=== PATIENT | female | born 1950 | race Caucasian/White ===

== ENCOUNTER 2020-10-17 17:23 | Outpatient (REF) | payer MEDICARE, SELFPAY ==
--- NOTE | 2020-10-17 | MM_ITS ---
EXAMINATION: MM SCREENING DIGITAL BREAST TOMOSYNTHESIS, BILATERAL CLINICAL INFORMATION: Screening. Asymptomatic. Family history postmenopausal breast cancer in aunt. No personal history breast surgery or biopsy. Prior outside exams from [place], currently unavailable. The lifetime risk of breast cancer based on the Tyrer-Cuzick Model is 8%. COMPARISON: None. TECHNIQUE: Digital breast tomosynthesis is performed in both the craniocaudal and mediolateral oblique views along with computer-aided detection (CAD). Synthesized 2D images are generated from the tomosynthesis. FINDINGS: The breasts are heterogeneously dense, which may obscure small masses (ACR BI-RADS breast composition Category c). Breast tissue composition borders on average fibroglandular. There is no significant mass or architectural abnormality. No abnormal calcifications. The axilla and skin contours are unremarkable. Radiology department staff will attempt to retrieve prior [id number] mammography to allow for comparison in an addendum report. MM/MM tomosynthesis screening BI IMPRESSION: No mammographic evidence of malignancy. ASSESSMENT: BI-RADS 1: Negative RECOMMENDATION: Routine annual mammography screening. This patient's information was entered into a reminder system with a target due date for their next mammogram.
== END 2020-10-17 17:24 | disposition home or self-care (01) ==
LOC: HO.MAMMO 17:23
PROVIDERS: PCP Family Medicine; Visit Provider Advanced Practice Midwife
DX: Z12.31 Encounter for screening mammogram for malignant neoplasm of breast (principal)
CPT/HCPCS: 77063; 77067

== ENCOUNTER → 2021-01-18 08:27 | Outpatient (BNVA) | payer MEDICARE, SELFPAY | PROVIDERS: PCP Family Medicine; Visit Provider Advanced Practice Midwife | DX: Z01.419 Encounter for gynecological examination (general) (routine) without abnormal findings (principal); N95.2 Postmenopausal atrophic vaginitis | CPT/HCPCS: 99212 ==

== ENCOUNTER 2021-10-25 13:02 | Outpatient (REF) | payer MEDICARE, SELFPAY ==
--- NOTE | ~2021-10-25 | MM_ITS ---
EXAMINATION: MM SCREENING DIGITAL BREAST TOMOSYNTHESIS, BILATERAL CLINICAL INFORMATION: Screening. Asymptomatic. The lifetime risk of breast cancer based on the Tyrer-Cuzick Model is 8%. COMPARISON: Mammography: 10/17/2020; outside mammography 05/16/2018, 05/07/2017 ([place], [place]). TECHNIQUE: Digital breast tomosynthesis is performed in both the craniocaudal and mediolateral oblique views along with computer-aided detection (CAD). Synthesized 2D images are generated from the tomosynthesis. FINDINGS: The breasts are heterogeneously dense, which may obscure small masses (ACR BI-RADS breast composition Category c). There are no significant masses, abnormal calcifications, or other abnormalities. Parenchymal pattern is similar to prior studies. No developing density. The axilla and skin contours are unremarkable. MM/MM tomosynthesis screening BI IMPRESSION: No mammographic evidence of malignancy. ASSESSMENT: BI-RADS 1: Negative RECOMMENDATION: Routine annual mammography screening. This patient's information was entered into a reminder system with a target due date for their next mammogram.
== END 2021-10-25 13:03 | disposition home or self-care (01) ==
LOC: HO.MAMMO 13:02
PROVIDERS: PCP Family Medicine; Visit Provider Advanced Practice Midwife
DX: Z12.31 Encounter for screening mammogram for malignant neoplasm of breast (principal)
CPT/HCPCS: 77063; 77067

== ENCOUNTER 2022-02-15 08:33 | Outpatient (REF) | payer MEDICARE, SELFPAY ==
[2022-02-16 10:57] LABS: BV Int Neg Control Negative (Negative); BV Int Pos Control Positive (Positive)
== END 2022-02-15 08:34 | disposition home or self-care (01) ==
LOC: HO.LAB 08:33
PROVIDERS: PCP Family Medicine; Visit Provider Advanced Practice Midwife
DX: Z01.419 Encounter for gynecological examination (general) (routine) without abnormal findings (principal); N89.8 Other specified noninflammatory disorders of vagina
CPT/HCPCS: 87480; 87510; 87660; 99212

== ENCOUNTER 2022-10-26 13:23 | Outpatient (REF) | payer MEDICARE, SELFPAY ==
--- NOTE | ~2022-10-26 | MM_ITS ---
EXAMINATION: MM SCREENING DIGITAL BREAST TOMOSYNTHESIS, BILATERAL CLINICAL INFORMATION: Screening. Asymptomatic. The lifetime risk of breast cancer based on the Tyrer-Cuzick Model is 7%. COMPARISON: Mammography: 10/25/2021, 10/17/2020, 05/16/2018 TECHNIQUE: Digital breast tomosynthesis is performed in both the craniocaudal and mediolateral oblique views along with computer-aided detection (CAD). Synthesized 2D images are generated from the tomosynthesis. FINDINGS: The breasts are heterogeneously dense, which may obscure small masses (ACR BI-RADS breast composition Category c). There are no significant masses, abnormal calcifications, or other abnormalities. Parenchymal pattern is similar to prior studies. There is no developing density or architectural abnormality. The axilla and skin contours are unremarkable. No significant changes. MM/MM tomosynthesis screening BI IMPRESSION: No mammographic evidence of malignancy. ASSESSMENT: BI-RADS 1: Negative RECOMMENDATION: Routine annual mammography screening. This patient's information was entered into a reminder system with a target due date for their next mammogram.
== END 2022-10-26 13:24 | disposition home or self-care (01) ==
LOC: HO.MAMMO 13:23
PROVIDERS: PCP Family Medicine; Visit Provider Family Medicine
DX: Z12.31 Encounter for screening mammogram for malignant neoplasm of breast (principal)
CPT/HCPCS: 77063; 77067

== ENCOUNTER 2023-03-04 08:41 | Outpatient (REF) | payer MEDICARE, SELFPAY ==
[2023-03-05 09:55] LABS: BV Int Neg Control Negative (Negative); BV Int Pos Control Positive (Positive)
== END 2023-03-04 08:42 | disposition home or self-care (01) ==
LOC: HO.LAB 08:41
PROVIDERS: PCP Family Medicine; Visit Provider Advanced Practice Midwife
DX: Z01.419 Encounter for gynecological examination (general) (routine) without abnormal findings (principal); N95.2 Postmenopausal atrophic vaginitis; R39.15 Urgency of urination; R32 Unspecified urinary incontinence
CPT/HCPCS: 87480; 87510; 87660

== ENCOUNTER 2023-03-28 09:57 | Outpatient (REF) | payer MEDICARE, SELFPAY ==
[2023-03-28 16:42] LABS: Urine Cytology See Pathology rpt
== END 2023-03-28 09:58 | disposition home or self-care (01) ==
LOC: HO.LNP 09:57
PROVIDERS: PCP Family Medicine; Visit Provider Nurse Practitioner Family
DX: R35.0 Frequency of micturition (principal); R31.29 Other microscopic hematuria
CPT/HCPCS: 88112; 99202

== ENCOUNTER 2023-04-12 12:06 | Outpatient (REF) | payer MEDICARE, SELFPAY ==
--- NOTE | ~2023-04-12 | US_ITS ---
EXAMINATION: US RETROPERITONEAL COMPLETE (RENAL) CLINICAL INFORMATION: Frequency of micturition. COMPARISON: None available. TECHNIQUE: Real-time imaging of the kidneys and bladder. FINDINGS: RIGHT KIDNEY: 11.7 x 4.6 x 5.5 cm (SAG x AP x TRV). The kidney is normal in size, contour, and echogenicity. Renal cortical thickness is normal. No calculi or focal parenchymal lesions. No hydronephrosis. LEFT KIDNEY: 10.4 x 4.3 x 5.3 cm (SAG x AP x TRV). The kidney is normal in size, contour, and echogenicity. Renal cortical thickness is normal. No calculi or focal parenchymal lesions. No hydronephrosis. BLADDER: Distended. Bilateral ureteral jets are demonstrated. Prevoid bladder volume is 473.7 mL. Postvoid bladder volume is 22.3 mL. US/US retroperitoneal comp IMPRESSION: Distended urinary bladder with debris consistent with sediment. Correlate with urinalysis. Bladder volume 474 mL. Post void volume 22 mL.
== END 2023-04-12 12:07 | disposition home or self-care (01) ==
LOC: HO.US 12:06
PROVIDERS: PCP Family Medicine; Visit Provider Nurse Practitioner Family
DX: R35.0 Frequency of micturition (principal); R31.29 Other microscopic hematuria
CPT/HCPCS: 76770

== ENCOUNTER 2023-11-15 11:22 | Outpatient (REF) | payer MEDICARE, SELFPAY | END 2023-11-15 11:23 | disposition home or self-care (01) | LOC: HO.MAMMO 11:22 | PROVIDERS: PCP Family Medicine; Visit Provider Advanced Practice Midwife | DX: Z12.31 Encounter for screening mammogram for malignant neoplasm of breast (principal) | CPT/HCPCS: 77063; 77067 ==

== ENCOUNTER → 2023-11-15 11:30 | Outpatient (BNV) | payer MEDICARE, SELFPAY | PROVIDERS: PCP Family Medicine; Visit Provider Radiology Diagnostic Radiology | DX: Z12.31 Encounter for screening mammogram for malignant neoplasm of breast (principal) | CPT/HCPCS: 77063; 77067 ==

== ENCOUNTER 2024-03-11 14:07 | Outpatient (AMB) | payer MEDICARE, SELFPAY ==
[2024-03-11 14:12] VITALS: BP 112/70; BMI 24.4
--- NOTE | 2024-03-11 14:12 | MHC.OFFVIS ---
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 She is doing well with no concerns. Seen by Urology last year did not follow up with provider after her last scan. Was unaware she had hematuria. Had stopped using the Estring, interested in restarting. Has some urinary urgency. She denies any risk factors for hormone use. Attempting to eat a healthy diet with calcium and vitamin D and stays active with exercise. Currently not sexually active. Admits to external dryness. Last mammogram; 2019. Colonoscopy is UTD. Denies any family history of ovarian or colon cancer. Distant relative with breast cancer. [facility] Medical History Glaucoma Cataract Basal cell carcinoma Low thyroid stimulating hormone (TSH) level Surgical History History of hernia surgery Hx of tonsillectomy Family History Paternal Aunt History of breast cancer Social History Alcohol intake: current Alcohol intake frequency: a few times a week Patient Tobacco Use Status: Never used Tobacco Female Reproductive History Menstrual Total pregnancies: 0 Date of Mammogram: 11/15/23 (Birad 1) Review of Systems Const All systems reviewed & are unremarkable except as noted in HPI and below Reports as per HPI Eyes Reports no additional complaints ENT Reports no additional complaints Card Reports no additional complaints Resp Reports no additional complaints GI Reports as per HPI and Reports no additional complaints Reports as per HPI Musc Reports no additional complaints Skin/Breast Reports as per HPI Neuro Reports no additional complaints Psych Reports no additional complaints Endo Reports no additional complaints Martínez/Lymph Reports no additional complaints Aller/Immun Reports no additional complaints Physical Exam Vital Signs: Last Vital Signs BP 112/70 03/11/24 14:12 BMI result Body Mass Index 24.4 Const General: cooperative, healthy appearing, no acute distress, well developed and alert Orientation/consciousness: patient oriented x3 HEENT Head: Yes normal to inspection Eyes General: appearance normal, both eyes and all related structures Neck Neck: Yes normal visual inspection Thyroid: Thyroid normal Chest Chest palpation & inspection: normal inspection of the chest and other (no puckering, dimpling, peau de orange, retraction, discharge, masses) Breast/axilla inspection: normal inspection of the breasts Breast/axilla palpation: normal palpation of the breasts Resp Effort & Inspection: normal respiratory effort GI Inspection: Yes normal to inspection Palpation (GI): Soft to palpation Rectal Exam - Female: deferred Other: External atrophic changes noted, urethral caruncle General: Yes bladder normal to palpation External Female Exam: normal external appearance and normal appearance of the urethra Speculum Exam - Vagina: normal palpation and vagina atrophic Speculum Exam - Cervix: normal appearance of the cervix and normal palpation Bimanual exam- vagina & uterus: normal bimanual exam, normal palpation, uterine size normal, bladder normal to palpation, normal palpation and non-tender Bimanual Exam- Adnexa, other: no masses Skin General skin exam: no rashes or lesions noted Rashes: no rashes Neuro General: patient oriented x3 Cognition (Neuro): normal cognition Extrem General: Yes normal to inspection Psych Attitude: cooperative Thought process: Normal thought process present Assessment & Plan Assessment & Plan (1) Encounter for well woman exam with routine gynecological exam: Code(s): Z01.419 - Encounter for gynecological examination (general) (routine) without abnormal findings (2) Urethral caruncle: Code(s): 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 Breast awareness, periodic self breast exams and yearly mammogram. Maintain a healthy lifestyle, well balanced diet including Calcium 1,200 mg and Vitamin D 800 IU daily, and routine exercise. Calcium handout given. Advised to follow up with Urology. Contact the office with any postmenopausal bleeding. Restarting estrogen will choose to use the topical for application due to the urethral caruncle. Reviewed med warning advised not to use if any breast lumps or diagnosis of breast cancer, call the office if any medical changes is uncertain with the use. Instructed on application frequency. Informed of Good Rx. Patient verbalizes understanding and agrees to the plan of care. She was given opportunity to ask questions and all questions were answered to the best of my ability. Return to the office 1 year. This note is constructed using voice recognition software. While every effort has been made to ensure accuracy, landscape architecture teacher errors may have been included. RTO in 1 year for annual sql programmer analyst exam. Medications: New estradiol 0.01%(0.1mg/gram) (Estrace) use nightly for two weeks, then twice a week 1 g vaginal 2XW 42.5 grams 2RF Coding Level of Care Code Est Pt Prev Care >65y(23398) Diagnoses Encounter for well woman exam with routine gynecological exam Z01.419 Urethral caruncle N36.2
== END 2024-03-11 15:10 | disposition home or self-care (01) ==
PROVIDERS: PCP Family Medicine; Visit Provider Advanced Practice Midwife
DX: Z01.419 Encounter for gynecological examination (general) (routine) without abnormal findings (principal); N36.2 Urethral caruncle
CPT/HCPCS: 99397

== ENCOUNTER → 2024-03-11 14:07 | Outpatient (BNVA) | payer MEDICARE, SELFPAY | PROVIDERS: PCP Family Medicine; Visit Provider Advanced Practice Midwife ==

== ENCOUNTER 2024-12-04 13:51 | Outpatient (REF) | payer MEDICARE, SELFPAY | END 2024-12-04 13:52 | disposition home or self-care (01) | LOC: HO.MAMMO 13:51 | PROVIDERS: PCP Family Medicine; Visit Provider Family Medicine | DX: Z12.31 Encounter for screening mammogram for malignant neoplasm of breast (principal) | CPT/HCPCS: 77063; 77067 ==

== ENCOUNTER → 2024-12-04 14:00 | Outpatient (BNV) | payer MEDICARE, SELFPAY | PROVIDERS: PCP Family Medicine; Visit Provider Internal Medicine | DX: Z12.31 Encounter for screening mammogram for malignant neoplasm of breast (principal) | CPT/HCPCS: 77063; 77067 ==

== ENCOUNTER 2025-03-16 09:03 | Outpatient (AMB) | payer MEDICARE, SELFPAY ==
--- NOTE | 2025-03-16 09:07 | MHC.OFFVIS ---
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 She is doing well with tie tape machine operator concerns: had recent antibiotic use, reports asymptomatic discharge. Currently not sexually active. Attempting to eat a healthy diet with calcium and vitamin D and stays active with exercise. Last mammogram; 2024. Colonoscopy is UTD. Denies any family history of ovarian or colon cancer. FH breast cancer. 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 Female Reproductive History Menstrual Total pregnancies: 0 Date of Mammogram: 12/04/24 (Birad 1) Review of Systems Const All systems reviewed & are unremarkable except as noted in HPI and below Reports as per HPI Eyes Reports no additional complaints ENT Reports no additional complaints Card Reports no additional complaints Resp Reports no additional complaints GI Reports as per HPI and Reports no additional complaints Reports as per HPI Musc Reports no additional complaints Skin/Breast Reports as per HPI Neuro Reports no additional complaints Psych Reports no additional complaints Endo Reports no additional complaints Martínez/Lymph Reports no additional complaints Aller/Immun Reports no additional complaints Physical Exam Vital Signs: Last Vital Signs BP 102/62 03/16/25 09:08 BMI result Body Mass Index 25.4 Const General: cooperative, healthy appearing, no acute distress, well developed and alert Orientation/consciousness: patient oriented x3 HEENT Head: Yes normal to inspection Eyes General: appearance normal, both eyes and all related structures Neck Neck: Yes normal visual inspection Thyroid: Thyroid normal Chest Chest palpation & inspection: normal inspection of the chest and other (no puckering, dimpling, peau de orange, retraction, discharge, masses) Breast/axilla inspection: normal inspection of the breasts Breast/axilla palpation: normal palpation of the breasts Resp Effort & Inspection: normal respiratory effort GI Inspection: Yes normal to inspection Palpation (GI): Soft to palpation Rectal Exam - Female: deferred General: Yes bladder normal to palpation External Female Exam: normal external appearance and normal appearance of the urethra Speculum Exam - Vagina: normal appearance of the vagina, normal palpation and normal vaginal discharge Speculum Exam - Cervix: normal appearance of the cervix and normal palpation Bimanual exam- vagina & uterus: normal bimanual exam, normal palpation, uterine size normal, bladder normal to palpation, normal palpation and non-tender Bimanual Exam- Adnexa, other: no masses Skin General skin exam: no rashes or lesions noted Rashes: no rashes Neuro General: patient oriented x3 Cognition (Neuro): normal cognition Extrem General: Yes normal to inspection Psych Attitude: cooperative Thought process: Normal thought process present Assessment & Plan Assessment & Plan (1) Encounter for annual routine gynecological examination: Code(s): Z01.419 - Encounter for gynecological examination (general) (routine) without abnormal findings Category: Medical Plan Discussed: Current recommendations for pap smears per ASCCP guidelines. Breast awareness, periodic self breast exams and yearly mammogram. Maintain a healthy lifestyle, well balanced diet including Calcium 1,200 mg and Vitamin D 600 IU daily, and routine exercise. BV swab obtained, await results for plan of care. Contact the office with any postmenopausal bleeding. Patient verbalizes understanding and agrees to the plan of care. She was given opportunity to ask questions and all questions were answered to the best of my ability. RTO in 1 year for annual tie tape machine operator exam. This note is constructed using voice recognition software. While every effort has been made to ensure accuracy, interactive media marketing director errors may have been included. Coding Level of Care Code Est Pt Prev Care >65y(81961) Diagnoses Encounter for annual routine gynecological examination Z01.419
[2025-03-16 09:08] VITALS: BP 102/62; BMI 25.4
== END 2025-03-16 09:43 | disposition home or self-care (01) ==
LOC: HO.HWS 09:03
PROVIDERS: PCP Family Medicine; Visit Provider Advanced Practice Midwife
DX: Z01.419 Encounter for gynecological examination (general) (routine) without abnormal findings (principal)
CPT/HCPCS: G0101

== ENCOUNTER 2025-03-16 09:03 | Outpatient (REF) | payer MEDICARE, SELFPAY ==
[2025-03-16 16:01] LABS: Bacterial Vaginosis PCR NEGATIVE (Negative); Candida Group PCR NOT DETECTED (Not Detect); Candida glab krusei PCR NOT DETECTED (Not Detect); Trichomonas vaginalis PCR NOT DETECTED (Not Detect)
== END 2025-03-16 09:04 | disposition home or self-care (01) ==
LOC: HO.LAB 09:03
PROVIDERS: PCP Family Medicine; Visit Provider Advanced Practice Midwife
DX: Z01.419 Encounter for gynecological examination (general) (routine) without abnormal findings (principal); N89.8 Other specified noninflammatory disorders of vagina
CPT/HCPCS: 81515; G0101

== ENCOUNTER 2025-08-29 18:00 | Emergency (ER) | payer MEDICARE, SELFPAY ==
[2025-08-29 18:07] VITALS: BP 140/68; PULSE 86; RESP 16; TEMP 36.6; O2SAT 97; BMI 36.0
--- NOTE | 2025-08-29 18:07 | ED.GENADULT ---
HPI - General Adult General Chief complaint: Skin/Abscess/Foreign Body Stated complaint: ? SHINGLES Time Seen by Provider: 08/29/25 18:09 Source: patient, RN notes reviewed and old records reviewed Mode of arrival: ambulatory Limitations: no limitations History of Present Illness ED Provider: Raven [facility] narrative: Patient is a 75-year-old female presenting to the ED with complaint of painful rash to right side of scalp and forehead. Noticed a tingling/burning sensation around 5 days ago, and rash developed 2 days ago. Denies fevers. History of chicken pox, has also received shingles vaccine. No rash extending onto the face beyond mid forehead. MD complaint: rash Onset (ago): day(s) Related Data Home Medications ?Medication ?Instructions ?Recorded ?Confirmed atorvastatin 10 mg tablet 0 mg PO 01/18/21 cholecalciferol (vitamin D3) 25 25 mcg PO DAILY 01/18/21 mcg (1,000 unit) tablet levothyroxine 88 mcg tablet 88 mcg PO DAILY 01/18/21 triamcinolone acetonide 55 mcg 1 spray intranasal DAILY 01/18/21 nasal spray aerosol (Nasacort) Previous Rx's ?Medication ?Instructions ?Recorded estradiol 0.01% (0.1 mg/gram) 1 g vaginal 2XW #42.5 grams 04/07/25 vaginal cream (Estrace) valacyclovir 1 gram tablet 1,000 mg PO TID 7 days #20 tabs 08/29/25 Allergies Allergy/AdvReac Type Severity Reaction Status Date / Time sulfa Allergy Unknown rash Uncoded 08/29/25 18:10 Review of Systems Review of Systems: As per hPI Yes all other systems are reviewed and are negative Constitutional: Constitutional: Reports as per HPI [facility] Past Medical History Medical History (Updated 08/29/25 @ 18:17 by Eleonora Carbajal NP) Glaucoma Cataract Basal cell carcinoma Low thyroid stimulating hormone (TSH) level Surgical History (Updated 03/16/25 @ 09:26 by Rica Cummings CNM) History of colonoscopy History of hernia surgery Hx of tonsillectomy Family History Family History Paternal Aunt History of breast cancer Social History Social History (Updated 03/16/25 @ 09:33 by Rica Cummings CNM) Alcohol intake: current Alcohol intake frequency: a few times a week Patient Tobacco Use Status: Never used Tobacco 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 Blood pressure normal. Heart rate normal. Respiratory rate normal. Temperature normal. Oxygen saturation normal. Const General: cooperative, healthy appearing and no acute distress Orientation/consciousness: oriented to person, oriented to place, oriented to time and patient oriented x3 Limitations: no limitations HENMT Head: Yes normocephalic and Yes atraumatic Ears: external ears normal, TM's normal bilaterally and EAC's normal General nose exam: Normal external nose present (no rash) Face and sinus: Yes face symmetric Face images:  1. erythematous vesicular rash Mouth: oropharynx normal and moist mucous membranes Throat: Yes uvula midline Eyes General: appearance normal, both eyes and all related structures Pupils: Equal, round and reactive pupils present Neck Neck: Yes normal visual inspection and Yes supple Resp Effort & Inspection: normal respiratory effort and able to speak in complete sentences Auscultation: clear to auscultation bilaterally Cardio Rate: regular rate Rhythm: regular rhythm Heart sounds: S1 normal heart sound present and S2 normal heart sound present GI Palpation (GI): Soft to palpation and nontender Auscultation: normoactive bowel sounds General: Yes no CVA tenderness Back/Spine/Pelvis Back: no CVA tenderness Skin General skin exam: elasticity normal and turgor normal Rashes: rashes noted (also extending to mid forehead on right) vesicles right lateral scalp Neuro General: oriented to person, oriented to place, oriented to time, patient oriented x3, moves all extremities, no focal motor deficits and CN's II-XI intact bilaterally Cranial nerves: Yes Equal, round and reactive pupils present Cognition (Neuro): normal cognition Extrem General: Yes full ROM, Yes no pedal edema and Yes no calf tenderness Psych Mental Status: mental status grossly normal Affect: normal affect Thought process: Normal thought process present Medical Decision Making Medical Decision Making MDM Narrative: Patient is a 75-year-old female presenting to the ED with complaint of painful rash to right side of scalp and forehead. On exam patient is awake, A+Ox3, VS WNL, afebrile, normal neurological exam without focal deficits, physical exam findings as above. Given reported symptoms and physical exam findings, findings most consistent with herpes zoster. Do not suspect TEN/SJS, DRESS, TTP/DIC, necrotizing fasciitis, meningococcemia, SSSS, TSS, anaphylaxis. Will treat with valacyclovir. Advised patient to monitor area closely and return immediately if rash spreads to nose or near eyes. Follow up with PCP as needed. Infection control precautions discussed with patient as well as return precautions. Patient verbalized understanding of and agreement with plan. Differential Diagnosis Differential Diagnoses: The differential diagnosis associated with the presentation includes as per [facility] Admission/Observation Consideration of admission/observation: Escalation of care including admission/observation considered Patient would have been admitted to the hospital and transferred to appropriate facility had their clinical presentation warranted hospital admission. External Record Review External record reviewed: Inpatient record, Office record and Outpatient record Prescription Management I considered prescription management with: Antiviral Discharge Plan Discharge Clinical Impression: Herpes zoster cephalicus Patient Disposition: Home, Self-Care Instructions: Valacyclovir (By mouth), Shingles (ED) Additional Instructions: You were evaluated in the emergency department today for a rash to your scalp and forehead. This rash is consistent with herpes zoster, also known as shingles. You are contagious until all of the lesions have fully crusted over. You should specifically avoid anyone who is elderly, immunocompromised/on chemotherapy or immunosuppressants, women who are , or anyone who has not had chicken pox or been vaccinated against chicken pox. You are being prescribed valacyclovir which is an antiviral medication. This will not cure the infection but will shorten the course of symptoms. It is important that you assess the rash daily and return to the emergency department if you notice the rash spreading onto your nose or around your eyes. Follow up with your primary care provider as needed. You can use Tylenol and ibuprofen for pain. Return to the emergency department for any new or concerning symptoms. Prescriptions: New valacyclovir 1 gram tablet 1,000 mg PO TID 7 Days Qty: 20 0RF No Action levothyroxine 88 mcg tablet 88 mcg PO DAILY atorvastatin 10 mg tablet 0 mg PO cholecalciferol (vitamin D3) 25 mcg (1,000 unit) tablet 25 mcg PO DAILY triamcinolone acetonide [Nasacort] 55 mcg aerosol,spray 1 spray intranasal DAILY Rx Instructions: administer into each nostril estradiol [Estrace] 0.01 % (0.1 mg/gram) cream 1 g vaginal 2XW Qty: 42.5 2RF Rx Instructions: use nightly for two weeks, then twice a week Print Language: Japanese
--- OUTSIDE RECORDS SUMMARY | 2025-08-29 18:18 | XMS_ITS | Data Portability ---
Author Organization [place] - [facility], Allergy Address [address] [address] Care Team Providers Care Fraud Investigator Name Role Phone GEN LOMAS Primary Care Provider [phone] Assessment Encounter Date Assessment Date Assessment LastModified by Organization Details LastModified Time 06/29/2025 06/29/2025 3-year follow-up MRI scan shows no signs of change in the size or character of the left intra labyrinthine schwannoma. Today we discussed the pros and cons of continuing with observation versus stopping with continued observation. Patient felt that she would feel more comfortable with continued observation. We elected to order MRI scan for 4 years. She will let me know if she has any sudden changes in her balance or facial function. Once again we discussed options available for treatment of single-sided deafness in the form of BiCROS amplification. After discussion of this remedy she had no interest in pursuing this. Not available 06/29/2025 10:25:33 Plan of Treatment Reminders Order Date Submit Date Provider Last Modified By Organization Details Last Modified Time Details Appointments None recorded. Lab None recorded. Referral None recorded. Procedures None recorded. Surgeries None recorded. Imaging MRI, brain + internal auditory canal, w/wo contrast - MRI, BRAIN + INTERNAL AUDITORY CANAL, W/WO CONTRAST 2024 029 [email or web address] [facility] ([facility] [address] [facility], [place], [address], 10:26:06 Medication Orders None recorded. Patient TargetsNo targets recorded. Patient InstructionsNo instructions recorded. Reason for Referral None Reported. Results Created Date Observation Date Name Description Value Unit Range Abnormal Flag Note LastModifiedBy Organization Detail LastModifiedTime 06/29/20 25 audio gram No observ ation record ed. BARCODE Not Available 2024 13:40:41 Result Notes None recorded. 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 Procedures Surgical History Date Name Laterality Status Provider Name and Address Organization Details Recorded Time 06/29/20 25 Air & Speech Audio with Tymps - 37305, 82990 & 58891 completed AIDEE FLORES, AUD [address], [address], [place] - [facility] 06/29/2025 09:09:56 tonsillectomy and adenoidectomy completed Joanne Arenas [place] - [facility] 06/29/2025 08:46:59 hernia repair completed Joanne Arenas [place] - [facility] 06/29/2025 08:47:08 Cataract Surgery completed Joanne Arenas [place] - [facility] 06/29/2025 08:47:13 Imaging Results None recorded. Procedure Notes None recorded. Medical Equipment None Reported. Allergies No known drug allergies Medications Name Sig Start Date Stop Date Status Note LastModified by Organization Details LastModified Time Estring 2 mg (7.5 mcg/24 hour) vaginal ring 2018 active Medicati on ID: [id number] D uration Value: 90 Brand Name: Estring Send Method: E-Prescr ibed Sub s Allowed: subs OK Speci al Instruct ion: USE DIRECTED CONTINUO US 90 DAYS VAGINAL 90 DAYS Med icationG enericNa me: Estring Not Available Not Available Not Available atorvasta tin 10 mg tablet TAKE 1 TAB BY MOUTH TWICE WEEKLY SAT AND X2 WEEKS THEN INCREASE TO 3 TIMES A WEEK Sat active Not Available Not Available No t Available levothyro xine 88 mcg tablet TAKE 1 TABLET BY MOUTH EVERY DAY active Not Available Not Available No t Available estradiol 0.01% (0.1 mg/gram) vaginal cream PLACE 1 GRAM VAGINALL Y NIGHTLY FOR 2 WEEKS THEN USE TWICE WEEKLY active Not Available Not Available No t Available amoxicill in 875 mg-potass ium clavulana te 125 mg tablet TAKE 1 TABLET BY MOUTH EVERY 12 HOURS FOR 10 DAYS 06/29 completed Not Available Not Available Not Available Vitals None Recorded Social History None recorded. Functional Status None recorded. Mental Status None recorded. Family History Nothing Reported. Medical History Condition Response Cancer Y Thyroid Problems Y Gynecological HistoryNo gynecological history recorded. Obstetrics History GPAL:G 0 P 0 0 0 0 Past Encounters Encounter ID Performer Location Encounter Start Date Encounter Closed Date Diagnosis/Indication Diagnosis SNOMED-CT Code Diagnosis ICD10 Code Diagnosis IMO Codes Diagnosis Note [id number] IVAN CASTILLO MD [facility] [address] [address] 06/29/2025 08:45:25 06/29/2025 10:26:06 Benign neoplasm of cranial nerve 19074986 D33.3 Sensorineu ral hearing loss of bilateral ears 169382078 H90.3 [id number] Audiologic al evaluation results: 06/29/2025R ight ear:Normal through 4 kHz sloping to a moderate sensorineu ral hearing loss with excellent word recognitio n.Left ear: DNT KNOWN EAR Tympanomet ry:Right Ear:Type ALeft Ear:Could not maintain a hermetic seal Health Concerns Section Related Observation LastModified by Organization Detai ls LastModified Time None Recorded Concern Status LastModified by Organization Details LastModified Time None Recorded Advance Directives Directive None Recorded Payers Insurance Date Sequence Insurance Name Policy Number Policy Rodney Covered Member ID Rodney Member ID Guarantor Name 06/29/2025 1 [facility] (MEDICARE REPLACEMENT/A DVANTAGE - PPO) [id number] 1 Deanna Fraireer [id number] Deanna Shafer Chawla 01/14/2025 1 [place] [employer] [employer] Deanna Fraireer [id number] Deanna Chawla Notes Date Note Type Note Provider Name and Address Organization Details Recorded Time 06/29/2025 text/html Patient with known left intralabyrinthine schwannoma which was detected on MRI scan in [place] around 2009 after having progressive sensorineural hearing loss and balance issues. Last MRI scan in 2021 which showed no change in new 3 x 3 enhancing nodule within the region of the left vestibule. 3 year follow-up MRI scan recommended which was done back in January 2025. This is not significantly changed in comparison to prior studies.Occasional discomfort along the left cheek referring down into the jawlinePatient does have complete sensorineural hearing loss on the left. In the past we have talked about BiCROS amplification as remedy for single-sided deafness. IVAN CASTILLO MD [address] [place] [address], [id number], [facility] - [facility] 06/29/2025 10:26:09 OBGyn Episode No OBEpisode recorded.
[2025-08-29 18:21] VITALS: BP 140/68; PULSE 86; RESP 16; TEMP 36.6; O2SAT 97
== END 2025-08-29 18:22 | disposition home or self-care (01) ==
PROVIDERS: Emergency Provider Student in an Organized Health Care Education/Training Program; PCP Family Medicine
DX: B00.89 Other herpesviral infection (principal)
CPT/HCPCS: 99282; 99283

== ENCOUNTER 2025-08-30 08:04 | Emergency (ER) | payer MEDICARE, SELFPAY ==
[2025-08-30 08:11] VITALS: BP 101/53; PULSE 98; RESP 16; TEMP 36.7; O2SAT 95; BMI 25.8
[2025-08-30] MEDS: Fluorescein Sodium STRIP 1 STRIP EYE-RIGHT (08:37)
[2025-08-30] MEDS: Tetracaine HCl/PF 0.5% Oph Sol 4 ML DROPS 1 DROP EYE-RIGHT (08:37)
--- NOTE | 2025-08-30 08:51 | ED_ITS ---
HPI - General Adult General Chief complaint: Skin/Abscess/Foreign Body Stated complaint: seen t-1, shingles spreading to eye and nose. Time Seen by Provider: 08/30/25 08:11 Source: patient, RN notes reviewed and old records reviewed Mode of arrival: ambulatory History of Present Illness ED Provider: Antonia Briones PA-C HPI narrative: 75-year-old female with past medical history Zoster diagnosed in our ED yesterday, presenting to the ED complaining of worsening rash/spreading to right eye noted today. Patient states tingling sensation began a few days ago with rash noted yesterday morning. Was evaluated in our ED yesterday and started on Valtrex which she has taken 1 dose. Reports watering to right eye. Denies vision change/blurry vision, vision loss, hearing complaints, fever Related Data Home Medications ?Medication ?Instructions ?Recorded ?Confirmed atorvastatin 10 mg tablet 0 mg PO 01/18/21 cholecalciferol (vitamin D3) 25 25 mcg PO DAILY mcg (1,000 unit) tablet levothyroxine 88 mcg tablet 88 mcg PO DAILY 01/18/21 triamcinolone acetonide 55 mcg 1 spray intranasal JONATHAN Y 01/18/21 nasal spray aerosol (Nasacort) Previous Rx's ?Medication ?Instructions ?Recorded estradiol 0.01% (0.1 mg/gram) 1 g vaginal 2XW #42.5 gr ams 04/07/25 vaginal cream (Estrace) valacyclovir 1 gram tablet 1,000 mg PO TID 7 days #20 tabs 08/29/25 Allergies Allergy/AdvReac Type Severity Reaction Status Date / Time sulfa Allergy Unknown rash Uncoded 08/30/25 08:13 Review of Systems Review of Systems: Yes all other systems are reviewed and are negative Constitutional: Constitutional: Reports as per [facility] Past Medical History Attestation statement: The following information was validated with the patient. Source: old records reviewed Medical History Glaucoma Cataract Basal cell carcinoma Low thyroid stimulating hormone (TSH) level Surgical History History of colonoscopy History of hernia surgery Hx of tonsillectomy Family History Family History Paternal Aunt History of breast cancer Social History Social History Alcohol intake: current Alcohol intake frequency: a few times a week Patient Tobacco Use Status: Never used Tobacco Advance Directives: No Advance Directives Information Provided: Yes Current occupation: Retired [employer] Physical Exam ED Vital Signs: Vital Signs - 24 hr 08/30/25 08:11 Temperature 98.1 F Pulse Rate 98 Respiratory Rate 16 Blood Pressure 101/53 L Pulse Oximetry 95 Oxygen Delivery Method Room Air BMI result Body Mass Index 25.8 Const General: cooperative, healthy appearing and no acute distress Orientation/consciousness: patient oriented x3 Limitations: no limitations HENMT Head: Yes normal to inspection and Yes atraumatic Ears: hearing grossly normal bilaterally General nose exam: Normal external nose present Mouth: no drooling Throat: Yes posterior oropharynx normal, Yes uvula midline, No uvula laterally displaced and No uvular edema Eyes Other: Erythematous/vesicular rash noted to right forehead extending to right upper eyelid and right infraorbital region. EOMs intact without entrapment. Fluorescein stain used without uptake. No dendritic lesions appreciated. No lesions to ear/tip of nose. TMs WNL General: appearance normal, both eyes and all related structures Conjunctivae: conjunctivae normal Sclerae: sclerae normal Corneas: corneas normal and fluorescein used Pupils: Equal, round and reactive pupils present EOM: EOMs intact bilaterally Direct Ophthalmoscopy: normal light reflex and no photophobia Neck Neck: Yes normal visual inspection and Yes no meningeal signs Resp Effort & Inspection: normal respiratory effort and no respiratory distress Cardio Rate: regular rate Skin Wounds: no wounds Neuro General: patient oriented x3, tone normal and no meningeal signs Cranial nerves: Yes CN's II-XII intact bilaterally and Yes Equal, round and reactive pupils present Gait exam (Neuro): Normal gait present Extrem General: Yes normal to inspection Medications Administered Discontinued Medications Generic Name Dose Route Start Last Admin Trade Name Freq PRN Reason Stop Dose Admin Fluorescein Sodium 1 strip 08/30/25 08:20 08/30/25 08:37 Fluorescein Sodium Strip EYE-RIGHT 08/30/25 08:21 1 strip ONCE ONE Administration Tetracaine HCl 1 drop 08/30/25 08:20 08/30/25 08:37 Tetracaine Hcl/Pf 0.5% Oph Christina 4 Ml Drops EYE-RIGHT 08/30/25 08:21 1 drop ONCE ONE Administration Medical Decision Making Medical Decision Making MDM Narrative: 75-year-old female with past medical history Zoster diagnosed in our ED yesterday, presenting to the ED complaining of worsening rash/spreading to right eye noted today. On exam vital signs stable, NAD, nontoxic appearing, physical exam as noted above. Rash spreading per patient/reported previous note however no appreciable ocular involvement at this time. Fluorescein use without uptake, no dendritic lesions. No evidence of Charli Cosme syndrome. No evidence of overlying bacterial infection/cellulitis. No evidence of preseptal/septal cellulitis, SJS, TEN or anaphylaxis Plan: Continue previously prescribed valacyclovir, PCP/ophthalmology follow-up. 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 Patient also would like to defer. Had lengthy discussion about needed close follow up/daily monitoring Please refer to course for remaining clinical decision making, interpretation of labs/imaging results, and discussions with consultants and/or family members. Results discussed with patient including worrisome signs and symptoms and strict return precautions, and when to return to the emergency department. They verbalized understanding and feel safe for discharge at this time. Differential Diagnosis Differential Diagnoses: The differential diagnosis associated with the presentation includes As above External Record Review External record reviewed: Inpatient record, Office record, Outpatient record, Prior outpatient labs, Prior outpatient radiology, Primary care record and Outside ED record Tests considered The following testing was considered but not selected: As above Prescription Management I considered prescription management with: Pain Medication, Antiviral and Other Social Determinants Patient?s care significantly limited by Social Determinants of Health including: Other Social Determinant of Health Discharge Plan Discharge Clinical Impression: Herpes zoster Patient Disposition: Home, Self-Care Instructions: Shingles (ED) Additional Instructions: Please continue taking previously prescribed valacyclovir Take until completion Please follow up with her primary care doctor as well as your infrastructure administrator. Call to make an appointment If her symptoms persist or worsen, you develop any vision change, blurry vision, double vision, lesions/rash on your nose or your ear return to the ED immediately Prescriptions: No Action valacyclovir 1 gram tablet 1,000 mg PO TID 7 Days Qty: 20 0RF levothyroxine 88 mcg tablet 88 mcg PO DAILY atorvastatin 10 mg tablet 0 mg PO cholecalciferol (vitamin D3) 25 mcg (1,000 unit) tablet 25 mcg PO DAILY triamcinolone acetonide [Nasacort] 55 mcg aerosol,spray 1 spray intranasal DAILY Rx Instructions: administer into each nostril estradiol [Estrace] 0.01 % (0.1 mg/gram) cream 1 g vaginal 2XW Qty: 42.5 2RF Rx Instructions: use nightly for two weeks, then twice a week Referrals: Juma Crawford [Physician, Ophthalmology] - 2 days Jimmie Uribe MD [Primary Care Provider, Internal Medicine] - 2 days Print Language: [place] Citizen
[2025-08-30 09:05] VITALS: BP 101/53; PULSE 98; RESP 16; TEMP 36.7; O2SAT 95
== END 2025-08-30 09:07 | disposition home or self-care (01) ==
PROVIDERS: Emergency Provider Emergency Medicine; PCP Family Medicine
DX: B02.9 Zoster without complications (principal)
CPT/HCPCS: 99282; 99283